=== PATIENT | male | born 2000 | race Caucasian/White ===

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

== ENCOUNTER 2024-06-11 09:42 | Emergency (ER) | payer OTHER ==
[~2024-06-11] VITALS: Ht 182.9 cm; Wt 80.7 kg
[~2024-06-11 09:42] MED LIST: ALLEGRA ALLERGY60 MG
[2024-06-11] MEDS ORDERED: KETOROLAC TROMETHAMINE 30 MG VIAL IM STA (11:10)
[2024-06-11] MEDS ORDERED: ORPHENADRINE CITRATE 30 MG/ML AMPUL IM STA (11:10)
[2024-06-11] MEDS ORDERED: KETOROLAC TROMETHAMINE 30 MG VIAL ONE (11:13)
[2024-06-11] MEDS ORDERED: ORPHENADRINE CITRATE 30 MG/ML AMPUL ONE (11:13)
== END 2024-06-11 11:30 | disposition home or self-care (01) ==
LOC: ER 09:43
DX: R10.32 Left lower quadrant pain (principal)